=== PATIENT | male | born 1970 | race Caucasian/White ===

== ENCOUNTER 2024-11-06 15:54 | Emergency (ER) | payer OTHER ==
[2024-11-06 16:20] VITALS: BP 116/58; PULSE 71; RESP 18; TEMP 98.1; BMI 33.0
[2024-11-06 17:04] LABS: URINE APPEARANCE CLEAR; URINE BILIRUBIN NEGATIVE (NEGATIVE); URINE COLOR YELLOW; URINE GLUCOSE (UA) 3+ (NEGATIVE); URINE KETONE TRACE (NEGATIVE); URINE LEUK ESTERASE NEGATIVE (NEGATIVE); URINE NITRITE NEGATIVE (NEGATIVE); URINE PROTEIN NEGATIVE (NEGATIVE); URINE UROBILINOGEN 0.2 mg/dL (0.2-1.0)
[2024-11-06] MEDS ORDERED: ACETAMINOPHEN INJECTION 100 ML ONE (17:12)
[2024-11-06 17:18] LABS: ABSOLUTE IMMATURE GRANULOCYTES 0.09 x10^3/uL (0.0-0.031); BASOPHILS # 0.04 x10^3/uL (0.01-0.08); EOSINOPHIL % 0.3 % (0.8-7.0); EOSINOPHILS # 0.03 x10^3/uL (0.04-0.54); MCHC 33.8 g/dl (32.3-36.5); MEAN CELL VOLUME 80.0 fl (79.0-92.2); MEAN PLT VOLUME 10.6 fl (9.4-12.4); MONOCYTE # 0.46 x10^3/uL (0.30-0.82); MONOCYTE % 4.9 % (5.3-12.2); RDW 12.4 % (12.2-16.1)
[2024-11-06] MEDS: ACETAMINOPHEN 1000 MG/100 ML BAG IVPB ONE (17:19)
[2024-11-06] MEDS: SODIUM CHLORIDE 0.9% 500 ML INFUS.BAG IV ONE (17:19)
[2024-11-06 17:31] LABS: GLUCOSE,RANDOM 280.0 mg/dL (74-106)
[2024-11-06 17:32] LABS: TOT PROT 6.8 g/dl (6.4-8.2)
[2024-11-06 17:33] LABS: CO2 26.0 mmol/L (21-32)
[2024-11-06 17:34] LABS: ALK PHOS 93.0 U/L (40-150)
[2024-11-06 17:37] LABS: CREATININE 0.86 mg/dL (0.55-1.3); SGOT/AST 19.0 U/L (5-34); SGPT/ALT 25.0 U/L (0-55)
[2024-11-06 17:59] LABS: HCV DIAGNOSTIC IN-HOUSE W/RFLX NON-REACTIVE (NONREACTIVE); HIV INTERPRETATION NEGATIVE (NEGATIVE)
== END 2024-11-06 18:25 | disposition home or self-care (01) ==
LOC: JER 15:54
PROC: 3E033NZ Introduction of Analgesics, Hypnotics, Sedatives into Peripheral Vein, Percutaneous Approach (ICD-10-PCS; principal; 2024-11-06)
DX: R53.83 Other fatigue (principal); R10.9 Unspecified abdominal pain; R51.9 Headache, unspecified
CPT/HCPCS: 36415; 80053; 81003; 82962; 83690; 85025; 86803; 87086; 87389; 87637-QW; 99284-25